=== PATIENT | female | born 1995 | race Caucasian/White ===

== ENCOUNTER 2019-10-19 05:34 | Inpatient (IN) ==
[2019-10-19] MEDS ORDERED: ceFAZolin 2,000 MG in PREMIX 1 EACH IV ONE (05:44)
[2019-10-19] MEDS ORDERED: FAMOTIDINE 20 MG/2 ML VIAL IV ONE (05:44)
[2019-10-19] MEDS ORDERED: CITRIC ACID/SODIUM CITRATE 30 ML UDCUP PO ONE (05:44)
[2019-10-19] MEDS ORDERED: INFLUENZA VIRUS VACCINE 0.5 ML SYRINGE IM ONE (05:44)
[2019-10-19] MEDS ORDERED: OXYTOCIN/LR 20 UNIT/1,000 ML BAG IV ONE ×2 (05:45→08:42)
[2019-10-19 06:02] LABS: Basophils # 0.1 10*3/uL (0.0-0.2); Basophils % 0.4 % (0.0-0.8); Eosinophils # 0.2 10*3/uL (0.0-0.87); Eosinophils % 1.3 % (0.00-10.9); Hematocrit 39.3 VOL% (35.7-47.0); Immature Granulocytes % 1.1 %; Immature Granulocytes Absolute 0.15 #; Lymphocytes # 3.3 10*3/uL (1.4-4.0); Lymphocytes % 24.6 % (21.3-54.2); Mean Corpuscular HGB Conc 33.1 GM/DL (32-36); Mean Corpuscular Volume 91.8 FL (87-102); Mean Platelet Volume 10.6 FL (9.6-12.0); Monocytes % 8.9 % (1.7-12.7); Neutrophils % 63.7 % (38.7-73.9); Platelet Count 232 T/CUMM (130-400); Red Blood Count 4.28 MC/CUMM (3.8-5.5); Red Cell Distribution Width 13.6 % (9.3-17.3); White Blood Count 13.5 T/CUMM (4-12)
[2019-10-19] MEDS ORDERED: CARBOPROST TROMETHAMINE 250 MCG/ML AMP IM ONE (07:19)
[2019-10-19] MEDS ORDERED: METHYLERGONOVINE 0.2 MG/1 ML AMP ONE (07:19)
[2019-10-19] MEDS ORDERED: miSOPROStoL 200 MCG TABLET ONE (07:19)
[2019-10-19] MEDS ORDERED: ROPIVACAINE 0.5% 30 ML VIAL ONE (08:39)
[2019-10-19] MEDS ORDERED: BUPIVACAINE SPINAL 0.75% 2 ML AMP SPINAL ONE (08:39)
[2019-10-19] MEDS ORDERED: PROPOFOL 200 MG/20 ML VIAL IV ONE (08:39)
[2019-10-19] MEDS ORDERED: MORPHINE 10 MG/10 ML VIAL ONE (08:39)
[2019-10-19] MEDS ORDERED: fentaNYL 100 MCG/2 ML VIAL ONE (08:39)
[2019-10-19] MEDS ORDERED: ONDANSETRON 4 MG/2 ML VIAL ONE (08:39)
[2019-10-19] MEDS ORDERED: PHENYLEPHRINE 1 MG/10 ML SYRINGE IV ONE (08:40)
[2019-10-19] MEDS ORDERED: LANOLIN 50% CREAM 0.3 OZ TUBE TOP PRN (08:42)
[2019-10-19] MEDS ORDERED: oxyCODONE/ACETAMINOPHEN 5-325 MG TABLET PO PRN ×2 (08:42)
[2019-10-19] MEDS ORDERED: BISACODYL 10 MG SUPP RECTAL PRN (08:42)
[2019-10-19] MEDS ORDERED: HYDROCORTISONE 2.5% RECTAL CREAM 30 GM TUBE TOP PRN (08:42)
[2019-10-19] MEDS ORDERED: MEASLES/MUMPS/RUBELLA VACCINE 0.5 ML VIAL SUBCUT ONE (08:42)
[2019-10-19] MEDS ORDERED: WITCH HAZEL PADS 100/JAR TOP PRN (08:42)
[2019-10-19] MEDS ORDERED: ACETAMINOPHEN 325 MG TABLET PO PRN (08:42)
[2019-10-19] MEDS ORDERED: BENZOCAINE 20%/MENTHOL 0.5% SPRAY 56 GM CAN TOP PRN (08:42)
[2019-10-19] MEDS ORDERED: ONDANSETRON 4 MG/2 ML VIAL IV PRN (08:42)
[2019-10-19] MEDS ORDERED: DIPH/TET/ACEL PERT BOOSTER VACCINE 0.5 ML VIAL IM ONE (08:42)
[2019-10-19] MEDS ORDERED: RHO(D) IMMUNE GLOBULIN 300 MCG SYRINGE IM ONE (08:42)
[2019-10-19 09:02] LABS: Apearance,Urine CLEAR (Clear); Bacteria,Urine Occasional /HPF (Few); Bilirubin,Urine Negative (Negative); Blood, Urine Negative (Negative); Glucose,Urine (UA) Negative (Negative); Ketones,Urine Negative (Negative); Mucus,Urine Occasional /LPF (Occasional); Nitrite,Urine Negative (Negative); Protein,Urine Negative; Squamous Epithelial Cell,Urine Occasional /HPF (0-10); Urine Color Yellow (Yellow); Urine Urobilinogen < 2.0 EU/DL (0.2-1.0); WBC,Urine <1 /HPF (0-6)
[2019-10-19] MEDS ORDERED: DEXAMETHASONE 4 MG/1 ML VIAL ONE (09:42)
[2019-10-19] MEDS ORDERED: SODIUM CHLORIDE 0.9% 100 ML IV ONE (15:12)
[2019-10-19] MEDS: LACTATED RINGERS 1,000 ML IV SCH ×2 (15:20→15:24)
[2019-10-19] MEDS: DOCUSATE SODIUM 100 MG CAPSULE PO SCH ×2 (15:20→20:59)
[2019-10-19] MEDS: ceFAZolin 1,000 MG in SYRINGE 1 EACH IV SCH ×2 (15:20→23:04)
[2019-10-19] MEDS ORDERED: SIMETHICONE CHEW 80 MG TABLET PO PRN (21:00)
[2019-10-20] MEDS ORDERED: diphenhydrAMINE CAP 25 MG CAPSULE PO PRN (00:19)
[2019-10-20] MEDS ORDERED: ALUMINUM/MAGNES/SIMETH MAX STR 30 ML UDCUP PO PRN (02:06)
[2019-10-20] MEDS ORDERED: diphenhydrAMINE 2% CREAM 28 GM TUBE TOP PRN (02:07)
[2019-10-20 06:36] LABS: Basophils % 0.2 % (0.0-0.8); Eosinophils # 0.1 10*3/uL (0.0-0.87); Eosinophils % 0.4 % (0.00-10.9); Hematocrit 30.5 VOL% (35.7-47.0); Hemoglobin 10.2 GM/DL (12.0-16.0); Immature Granulocytes % 0.7 %; Immature Granulocytes Absolute 0.13 #; Lymphocytes % 22.9 % (21.3-54.2); Mean Corpuscular HGB Conc 33.4 GM/DL (32-36); Mean Corpuscular Volume 91.6 FL (87-102); Mean Platelet Volume 11.5 FL (9.6-12.0); Monocytes % 11.3 % (1.7-12.7); Neutrophils % 64.5 % (38.7-73.9); Platelet Count 209 T/CUMM (130-400); Red Blood Count 3.33 MC/CUMM (3.8-5.5); Red Cell Distribution Width 13.2 % (9.3-17.3); White Blood Count 17.4 T/CUMM (4-12)
[2019-10-20] MEDS: IBUPROFEN 800 MG TABLET PO PRN ×3 (06:52→23:12)
[2019-10-20] MEDS: MAGNESIUM HYDROXIDE SUSP 30 ML UDCUP PO PRN ×2 (08:24→19:39)
[2019-10-20] MEDS: DOCUSATE SODIUM 100 MG CAPSULE PO SCH ×3 (08:25→21:07)
[2019-10-21] MEDS: IBUPROFEN 800 MG TABLET PO PRN ×2 (04:50→12:07)
[2019-10-21 07:26] VITALS: BP 109/54
[2019-10-21] MEDS: DOCUSATE SODIUM 100 MG CAPSULE PO SCH (08:29)
== END 2019-10-21 13:40 | disposition home or self-care (01) | DRG 540 ==
LOC: N.LDOUT 05:34 → N.LD 05:39 → N.OB 12:40
PROVIDERS: ADMIT Specialist; ATTEND Specialist
PROC: LDCSECT (ICD-10-PCS; 2019-10-19 07:30)